=== PATIENT | male | born 1940 | race Caucasian/White ===

== ENCOUNTER 2020-01-11 01:01 | Inpatient (IN) | payer MEDICARE, SELFPAY ==
[2020-01-11] VITALS (17 sets, daily range): BP systolic 106–148; BP diastolic 60–90; PULSE 55–88; RESP 12–23; TEMP 36.3–37.2; O2SAT 95–98; BMI 28.8
--- NOTE | ~2020-01-11 | CT_ITS ---
EXAMINATION: CTA chest EXAM DATE: 01/11/2020 01:43 INDICATION: Chest pain, aortic aneurysm. TECHNIQUE: Spiral CT of the chest following intravenous injection of 75 mL Omnipaque 350. Axial, cor onal and sagittal images were reviewed. Coronal maximum intensity pixel images of chest reviewed. Ma ximum intensity projection 3-D reconstructions of the aorta were created by the technologist on dedic [employer] workstation. The dose-length product (DLP) for this examination was 572.71 mGy-cm. The exposur e was tailored according to patient size (auto mA exposure control), and iterative reconstruction ( IR) was used as additional dose reduction technique. There is no prior study for comparison. FINDINGS: No central pulmonary emboli. Aortic root dilated at 5.0 cm. Mildly aneurysmal ascending ao rta up to 4.4 cm. No thoracic aortic dissection. Mild to moderate scattered aortic arteriosclerotic d isease mostly beyond the aortic arch. There are no pleural or pericardial effusions. Tracheobronch ial tree is patent. There is no mediastinal, hilar or axillary lymphadenopathy. There is no pneum othorax. Heart normal in size. There is mild to moderate coronary arterial calcification, arteria l sclerosis. Renal lesions consistent with cysts. Thyroid nodules. There is moderate thoracic spond ylosis without osteoblastic or osteolytic lesions identified. IMPRESSION: 1. Aortic root dilation, ascending aortic aneurysm. 2. No acute cardiopulmonary findings. Reviewed, dictated and finalized at location A.
--- NOTE | 2020-01-11 00:59 | ECG_ITS ---
Measurements Intervals [place] Rate: 82 P: [place]: 0 QRS: -28 QRSD: 128 T: 133 QT: 418 QTc: 491 Interpretive Statements ATRIAL FIBRILLATION INTRAVENTRICULAR CONDUCTION DELAY LEFT VENTRICULAR HYPERTROPHY AND ST-T CHANGE ST ELEVATION IN ANTEROSEPTAL LEADS- CONSIDER ACUTE INJURY ST-T WAVE ABNORMALITY IN HIGH LATERAL LEADS- CONSIDER ISCHEMIA ABNORMAL ECG Electronically Signed On 01-11-2020 8:19:42 CDT by Jacobo Bhatia D.O.
--- NOTE | 2020-01-11 01:06 | ED.CHESTPAIN ---
HPI - Chest Pain General Chief Complaint: Chest Pain Stated Complaint: CP Source: patient and EMS Mode of arrival: EMS Limitations: no limitations History of Present Illness HPI narrative: This patient is a 79 yo male with h/o PA, CAD s/p stents 1 year ago who presents for evaluation of substernal chest pain. PAtient states he woke up to go to the restroom tonight, and as he was walking he develop dizziness and chest pain. He states his pain radiated to bilateral arms but worse on the right. He had associated numbness, sob, nausea and diaphoresis. He reports this is similar to when he had an PA last year. He took 4 nitroglycerin at home before EMS arrival. On EMS arrival , patient's pain decreased from 8 to 2. He was given 324 mg aspirin by EMS. Patient now reports his pain is almost compeltely gone. Timing of current episode: now resolved Onset: during exertion Pain location: substernal Pain radiation: right arm and left arm Quality: heaviness Relieving factors: nitroglycerin Associated symptoms: nausea, diaphoresis and dyspnea Treatment prior to arrival: aspirin (324 mg), nitroglycerin and oxygen Risk Factors Coronary artery disease risk factors: hypertension Thoracic aortic dissection risk factors: history of thoracic aortic aneurysm Related Data Allergies Allergy/AdvReac Type Severity Reaction Status Date / Time No Known Allergies Allergy Uncoded 07/10/19 06:41 Review of Systems Review of Systems: All systems reviewed & are unremarkable except as noted in HPI and below Constitutional: Constitutional: Denies chills and Denies fever(s) ENT: Denies nasal congestion and Denies sore throat Cardiovascular: Cardiovascular: Reports chest pain and Reports radiating jaw, neck or arm pain Respiratory: Respiratory: Denies chest congestion, Denies cough, Reports dyspnea and Denies wheezing Gastrointestinal: Gastrointestinal: Denies abdominal pain, Denies constipation, Denies diarrhea, Reports nausea and Denies vomiting [facility] Past Medical History Medical History (Updated 01/11/20 @ 07:46 by Leslie Card MD) Myocardial infarction Surgical History Surgical History (Updated 01/11/20 @ 01:13 by Leslie Card MD) History of heart artery stent Family History Family History (Updated 03/30/17 @ 12:30 by DOCTOR UNKNOWN) Mother Diabetes mellitus Family history of malignant neoplasm Father Family history of arthritis Social History Social History Smoking packs per day: 1 Smoking cigarettes per day: 20.0 Years smoked: 10 Smoking pack-years: 10.00 Smoking status: Former smoker Tobacco type: cigarettes Second hand tobacco smoke exposure: No Smoking end date: 09/24/1966 Alcohol intake: former Substance use: never Spiritual care concerns: No Agree to blood products: Yes Exam Const: General: no acute distress and alert Orientation/consciousness: patient oriented x3 Eyes: EOM: EOMs intact bilaterally Chest: Chest palpation & inspection: normal inspection of the chest Resp: Effort & Inspection: normal respiratory effort Auscultation: clear to auscultation bilaterally Cardio: Rate: regular rate Rhythm: regular rhythm Heart sounds: Murmur heart sound present systolic Peripheral pulses: Peripheral pulses 2+ throughout GI: Inspection: non-distended Auscultation: normal bowel sounds Skin: General skin exam: normal color Rashes: no rashes Neuro: General: patient oriented x3 and moves all extremities Extrem: General: normal to inspection and no pedal edema Psych: Mental Status: mental status grossly normal Course Reevaluation(s) Reevaluation #1: Patient presented with chest pain that resolved on arrival to ER after nitro. He now reports his pain has returned to 4/10. He states it is not as severe as before. Date: 01/11/20 Time: 02:50 Consultations Consultation #1: I have discussed case with Dr. Akash Marte, interventionalist about patient symptoms.
[2020-01-11] MEDS: ONDANSETRON INJ 4 MG/2 ML VIAL IV PUSH (01:08)
--- NOTE | 2020-01-11 01:09 | PC.NURSE ---
Patient's pain decreased, MD stated not to give nitro paste and morphine.
[2020-01-11 01:21] LABS: Basophils Percent Auto 0.4 % (0.2-1.2); Eosinophils Absolute Auto 0.1 K/mm3 (0-0.3); Eosinophils Percent Auto 1.6 % (0-4.4); Hematocrit 35.8 % (42.0-52.0); Hemoglobin 13.4 g/dL (14.0-18.0); Immature Granulocyte Absolute 0.01 K/mm3 (0.00-0.031); Immature Granulocyte Percent A 0.2 % (0-0.5); Lymphocytes Absolute Auto 1.86 K/mm3 (0.9-3.2); Lymphocytes Percent Auto 36.8 % (18.3-44.2); Mean Corpuscular HGB Conc 37.4 g/dl (32-36); Mean Corpuscular Hemoglobin 36.1 pg (26-34); Mean Corpuscular Volume 96.5 fl (80-100); Mean Platelet Volume 10.6 fl (7.4-10.4); Monocytes Absolute Auto 0.5 K/mm3 (0.1-0.6); Monocytes Percent Auto 9.1 % (2.6-8.5); Neutrophils Absolute Auto 2.6 K/mm3 (1.3-6.7); Neutrophils Percent Auto 51.9 % (45.5-73.1); Platelet Count Result 156 k/mm3 (150-375); Red Blood Count 3.71 M/mm3 (4.6-6.20); Red Cell Distribution Width 14.1 % (11.5-14.5); White Blood Count 5.1 K/mm3 (4.5-10.0)
[2020-01-11 01:30] LABS: INR 0.9; Prothrombin Time 12.3 Seconds (11.1-14.7)
[2020-01-11 01:31] LABS: Blood Urea Nitrogen 16 mg/dL (9-20); Calcium 9.2 mg/dL (8.4-10.2); Carbon Dioxide 26 mmol/L (22-30); Chloride 105 mmol/L (98-107); Estimated CRCL calculation 82 ml/min; Estimated Glomerular Filt Rate > 60; Glucose 135 mg/dL (75-110); Partial Thromboplastin Time 29.2 SECONDS (22.3-36.8); Potassium 3.9 mmol/L (3.4-5.0); Sodium 138 mmol/L (137-145)
[2020-01-11 01:43] LABS: Troponin I < 0.012 ng/mL (0.000-0.034)
--- NOTE | 2020-01-11 02:28 | ECG_ITS ---
Measurements Intervals [place] Rate: 84 P: [place]: 0 QRS: -30 QRSD: 138 T: 141 QT: 395 QTc: 469 Interpretive Statements ATRIAL FIBRILLATION INTRAVENTRICULAR CONDUCTION DELAY LEFT VENTRICULAR HYPERTROPHY AND ST-T CHANGE ST ELEVATION IN ANTEROSEPTAL LEADS- CONSIDER ACUTE INJURY ST-T WAVE ABNORMALITY IN LATERAL LEADS- CONSIDER ISCHEMIA ABNORMAL ECG Electronically Signed On 01-11-2020 8:22:20 CDT by Jacobo Bhatia D.O.
[2020-01-11] MEDS: NITROGLYCERIN OINTMENT 1 INCH DOSE TRANSDERM (02:31)
[2020-01-11] MEDS: MORPHINE SULFATE 2 MG/ML INJ IV PUSH (02:32)
[2020-01-11] MEDS: HEPARIN SODIUM 5,000 UNITS/ML VIAL 4000 UNITS IV PUSH (03:42)
[2020-01-11] MEDS: HEPARIN SOD/D5W 100 UNITS/ML 25,000 UNITS/250 ML BAG 10 UNITS IV CONT (03:43)
[2020-01-11] MEDS: NITROGLYCERIN/D5W 200 MCG/ML 50 MG/250 ML BTL IV CONT (03:43)
[2020-01-11 04:47] LABS: Troponin I 0.036 ng/mL (0.000-0.034)
--- NOTE | 2020-01-11 04:57 | PC.NURSE ---
Patient unsure of home medications.
--- NOTE | 2020-01-11 07:00 | ADMGEN ---
This patient, Marlon Clark, was admitted to Intensive Care Unit-10. Patient/family oriented to hospital policies and general routines including ID bracelet, bed and alarms, visiting hours, pain management, procedures, bathroom and other care routines, personal items, smoking policy, room service/diet, and visiting hours. Valuables list has been completed. Information on how to activate the Rapid Response Team has been discussed. Patient/Family are encouraged to report perceived risks to care and to ask questions if they do not understand what they are told or what they should do.
[2020-01-11 07:34] LABS: Prothrombin Time 12.8 Seconds (11.1-14.7)
[2020-01-11 07:44] LABS: Troponin I 0.049 ng/mL (0.000-0.034)
--- NOTE | 2020-01-11 09:21 | PM.IMHP ---
H&P: HPI History of Present Illness Chief complaint: NSTEMI Narrative: Marlon Clark is a 79 year old male with a known history of coronary artery disease having had a myocardial infarction a little over 1 year ago. He had a coronary angiogram with stents placed in he believes the LAD and left circumflex. This was performed in [facility]. He had no chest pain for over a year. However last night while seated at about 11:00 p.m. he began to experience 8/10 substernal chest pressure radiating down to both elbows with associated clamminess and shortness of breath. When he got up and tried to walk to the car to go to the emergency department with his he became more short of breath and had to sit down on the couch. They summoned 911 and he was brought the emergency department. He received 3 aspirin with EMS and his pain declined to 2/10. Upon arrival in ED increased to 4/5 out of 10 He received IV morphine and sublingual nitroglycerin in the pain declined again to 1 to 2/10 and is remained at that level all night. He has been anticoagulated with heparin. He did smoke as a young adult but has not smoked since about age 27. 0 He does have a history of hypertension and hyperlipidemia. He denied any family history of coronary artery disease. He does snore loudly and wears nasal tapes across his nose to help with that. However he has no symptoms of fatigue or daytime drowsiness. He denied any history of abnormal bleeding including nosebleeds gum bleeds hematuria melena and hematochezia. Review of Systems Review of Systems: All systems reviewed & are unremarkable except as noted in HPI and below PMFSH Past Medical History Medical History (Updated 01/11/20 @ 09:28 by Terry Nguyen MD) Hypertension Myocardial infarction 2019: [place], [place] Osteoarthritis of multiple joints Pelvic fracture due to trauma in his 20's Surgical History Surgical History (Updated 01/11/20 @ 09:28 by Terry Nguyen MD) History of appendectomy History of heart artery stent 2019: [place], [place] Family History Family History (Updated 01/11/20 @ 09:30 by Terry Nguyen MD) Mother Diabetes mellitus Family history of malignant neoplasm Father Family history of arthritis Family history of malignant neoplasm Sibling Chronic obstructive pulmonary disease Lung cancer Social History Social History (Updated 01/11/20 @ 09:29 by Terry Nguyen MD) Smoking packs per day: 1 Smoking cigarettes per day: 20.0 Years smoked: 10 Smoking pack-years: 10.00 Smoking status: Former smoker Tobacco type: cigarettes Second hand tobacco smoke exposure: No Smoking end date: 09/24/1966 Alcohol intake: former Substance use: never Living arrangements: with family Additional living arrangements comments: Resides with spouse Occupation/Education: retired Additional occupation/education comments: Retired from [employer] Spiritual care concerns: No Agree to blood products: Yes Meds Home Medications and Allergies Allergies Allergy/AdvReac Type Severity Reaction Status Date / Time No Known Allergies Allergy Uncoded 07/10/19 06:41 Vital Signs Vital Signs - 24 hr 01/11/20 00:55 01/11/20 04:18 01/11/20 04:57 Temperature 97.8 F Pulse Rate 85 88 86 Respiratory Rate 18 18 18 Blood Pressure 148/78 H 127/65 124/66 Pulse Oximetry 98 96 97 01/11/20 07:00 01/11/20 07:02 01/11/20 08:00 Temperature 98.2 F Pulse Rate 84 68 81 Respiratory Rate 19 16 23 H Blood Pressure 120/70 128/67 135/75 Pulse Oximetry 95 97 96 Exam Narrative: Exam Narrative: HEENT: EOMI, PERRL, sclerae nonicteric, pharyngeal mucosa pink and intact NECK: No JVD, adenopathy, or thyromegaly. No bruits. CHEST: Clear to auscultation. Normal effort. HEART: NL S1/S2, regular, no murmur ABDOMEN: BS+, soft, nontender, no mass, no bruits EXTREMITIES: No cyanosis, edema, or clubbing. Pulses 2+ carotids, radia
[2020-01-11 10:03] LABS: Partial Thromboplastin Time 76.8 SECONDS (22.3-36.8)
[2020-01-11] MEDS: ASPIRIN 81 MG CHEWABLE TABLET PO (10:19)
[2020-01-11] MEDS: ATORVASTATIN 40 MG TABLET PO (10:19)
[2020-01-11] MEDS: METOPROLOL TARTRATE 25 MG TABLET PO (10:19)
--- NOTE | 2020-01-11 11:15 | PM.CNCAR ---
Assessment and Plan Additional Plan NSTEMI, HX of ACS and PCI last year in OSH, HTN, early diastolic murmur liekly DESTINY, plan heparin infusion, ASA, Plavix, statin, add Imdur and B-justin, TTE in AM before cath to assess seveerity of AI, LHC in AM History of Present Illness History of Present Illness Consult date/time: 01/11/20 11:15 Reason For Visit: NSTEMI Narrative: Patient presented with acute chest pain, pressure like, sever 05/03, pressure, radiates to both arms, started at 11 PM before going to bed, imrpoved with NTG SL and infusion on arrival to ER, currently mild, no precipitating factors. Pain was associated with dizziness and near syncope. Pain was similar to episode he had when had had heart atatcks one year ago and he had 2 stents in [place] [facility]. Review of Systems Review of Systems: All systems reviewed & are unremarkable except as noted in HPI and below PMFSH Past Medical History Medical History (Updated 01/11/20 @ 11:26 by Tylor Calvin MD) Hypertension Myocardial infarction 2019: [place], [place] Osteoarthritis of multiple joints Pelvic fracture due to trauma in his 20's Surgical History Surgical History (Updated 01/11/20 @ 09:28 by Terry Nguyen MD) History of appendectomy History of heart artery stent 2019: [place], [place] Family History Family History (Updated 01/11/20 @ 09:30 by Terry Nguyen MD) Mother Diabetes mellitus Family history of malignant neoplasm Father Family history of arthritis Family history of malignant neoplasm Sibling Chronic obstructive pulmonary disease Lung cancer Social History Social History (Updated 01/11/20 @ 09:29 by Terry Nguyen MD) Smoking packs per day: 1 Smoking cigarettes per day: 20.0 Years smoked: 10 Smoking pack-years: 10.00 Smoking status: Former smoker Tobacco type: cigarettes Second hand tobacco smoke exposure: No Smoking end date: 09/24/1966 Alcohol intake: former Substance use: never Living arrangements: with family Additional living arrangements comments: Resides with spouse Occupation/Education: retired Additional occupation/education comments: Retired from [employer] Spiritual care concerns: No Agree to blood products: Yes Meds Home Medications and Allergies Home Medications Medication Instructions Recorded Confirmed Type atorvastatin 40 mg PO DAILY 01/11/20 01/11/20 History carvedilol 3.125 mg PO DAILY 01/11/20 01/11/20 History clopidogrel 75 mg PO DAILY 01/11/20 01/11/20 History losartan 50 mg PO DAILY 01/11/20 01/11/20 History Allergies Allergy/AdvReac Type Severity Reaction Status Date / Time No Known Allergies Allergy Uncoded 07/10/19 06:41 Vital Signs Vital Signs - 24 hr 01/11/20 00:55 01/11/20 04:18 01/11/20 04:57 Temperature 36.6 C Pulse Rate 85 88 86 Respiratory Rate 18 18 18 Blood Pressure 148/78 H 127/65 124/66 Pulse Oximetry 98 96 97 01/11/20 07:00 01/11/20 07:02 01/11/20 08:00 Temperature 36.8 C Pulse Rate 84 68 81 Respiratory Rate 19 16 23 H Blood Pressure 120/70 128/67 135/75 Pulse Oximetry 95 97 96 01/11/20 10:00 01/11/20 10:19 01/11/20 11:10 Temperature Pulse Rate 78 82 77 Respiratory Rate 12 Blood Pressure 148/81 H Pulse Oximetry 96 Exam Const: General: comfortable and no acute distress Other: Able to lie flat HENMT: General nose exam: Normal nares present and no epistaxis Mouth: Yes moist mucous membranes Eyes: Sclera: sclerae normal Pupils: Equal, round and reactive pupils present Neck: Neck: supple and no JVD Carotids: no bruits Resp: Auscultation: clear to auscultation bilaterally and lung sounds not diminished Other: No chest wall tenderness Cardio: Rate: regular rate Rhythm: regular rhythm Heart sounds: no gallops, Murmur heart sound present and no rubs Other: early diastolic murmur GI: GI Palp: Yes Soft to palpation and No Tenderness to palpation present (
--- NOTE | 2020-01-11 11:20 | WPDCNINT ---
Assessment and Plan Assessment and plan (1) Hypertension: Code(s): I10 - Essential (primary) hypertension Status: Acute Assessment and Plan: Continue metoprolol. Follow blood pressure closely. He has been weaned off nitroglycerin drip already. (2) Non-ST elevation AL (NSTEMI): Code(s): I21.4 - Non-ST elevation (NSTEMI) myocardial infarction Status: Acute Assessment and Plan: Continue aspirin and statin. Cardiology evaluation is pending. He will likely need cardiac catheterization. No ongoing chest pain. Continue to monitor on telemetry. Chest pain protocol. Nitroglycerin patch/ ointment / sublingual S p.r.n. for pain control. May use morphine for pain control as well. Continue heparin drip. Follow APTT and any bleeding. CT of the chest has been performed with pending read from Cardiology. I reviewed the images myself and do not see any pulmonary embolism. (3) CAD (coronary artery disease): Code(s): I25.10 - Atherosclerotic heart disease of [place] coronary artery without angina pectoris Status: Acute Assessment and Plan: He has a known history of CAD with stent placement in LAD and left circumflex artery about a year ago. (4) Hyperlipidemia: Code(s): E78.5 - Hyperlipidemia, unspecified Status: Acute Assessment and Plan: Continue statin. Additional Plan Will downgrade him to telemetry floor Versus IMU later today. DVT prophylaxis with systemic anticoagulation GI prophylaxis not indicated Consulting Sales Executive Consult Note Consult date: 01/11/20 Time Seen: 09:48 HPI: Marlon Clark is a 79 year old male with past medical history of hypertension, hyperlipidemia, CAD status post stent placement in LAD and left circumflex artery about a year ago who came to the ED with complaints of substernal chest pain. S it started last night at around 11:00 p.m.. Pain was 8 x 10 in intensity and radiating to both arms with sweating and shortness of breath. He denied have any lightheadedness or dizziness. Did not have any nausea and vomiting. That call EMS and he was brought in here. He was still complaining of chest pain in the emergency department after sublingual nitro and IV morphine. He was started on nitro drip. He was started on anticoagulation with heparin as well. He had workup done in the emergency department with minimal troponin elevation. EKG is suggestive of some ischemic changes. Review of Systems Review of Systems: Narrative: A comprehensive review of systems has been reviewed with the patient and most of the symptoms are negative except the one's mentioned above in HPI. [facility] Past Medical History Medical History (Updated 01/11/20 @ 11:26 by Tylor Calvin MD) Hypertension Myocardial infarction 2019: [place], [place] Osteoarthritis of multiple joints Pelvic fracture due to trauma in his 20's Surgical History Surgical History (Updated 01/11/20 @ 09:28 by Terry Nguyen MD) History of appendectomy History of heart artery stent 2019: [place], [place] Family History Family History (Updated 01/11/20 @ 09:30 by Terry Nguyen MD) Mother Diabetes mellitus Family history of malignant neoplasm Father Family history of arthritis Family history of malignant neoplasm Sibling Chronic obstructive pulmonary disease Lung cancer Social History Social History (Updated 01/11/20 @ 09:29 by Terry Nguyen MD) Smoking packs per day: 1 Smoking cigarettes per day: 20.0 Years smoked: 10 Smoking pack-years: 10.00 Smoking status: Former smoker Tobacco type: cigarettes Second hand tobacco smoke exposure: No Smoking end date: 09/24/1966 Alcohol intake: former Substance use: never Living arrangements: with family Additional living arrangements comments: Resides with spouse Occupation/Education: retired Additional occupation/education comments: Retired from [employer]
--- NOTE | 2020-01-11 14:13 | PC.NURSE ---
This patient, Marlon Clark, was transferred to [ 202 ] on 01/11/20 at 1413. Personal belongings sent with patient. Belongings list checked and signed with receiving [yes ]. Report given to [ HEVER Mendez]. Appropriate documentation sent with patient.
[2020-01-11 16:23] LABS: Partial Thromboplastin Time 69.7 SECONDS (22.3-36.8)
[2020-01-11] MEDS: HEPARIN SODIUM 5,000 UNITS/ML VIAL 3500 UNITS IV PUSH (16:46)
[2020-01-11] MEDS: METOPROLOL TARTRATE 25 MG TABLET 50 MG PO (21:41)
[2020-01-12] VITALS (19 sets, daily range): BP systolic 108–137; BP diastolic 49–70; PULSE 51–70; RESP 16–20; TEMP 36.3–36.9; O2SAT 93–99
--- NOTE | 2020-01-12 | ECHO_ITS ---
Patient Info Name: Marlon Clark Age: 79 years : 1940 Gender: Male Ht: 72 in Wt: 212 lbs BSA: 2.23 m2 HR: 53 bpm BP: 114 / 59 mmHg Technical Quality: Good Exam Date: 01/12/2020 11:10 AM Exam Location: [facility] Patient Status: Inpatient Admit Date: 01/11/2020 Staff Ordering Physician: Jesus Fernandez MD Underwriting Clerk: Tony Covington RDCS, RT Attending Provider: Catherine Mohan DO Exam Type: CA echo dop color flow w con Study Info Indications I35.1 - Nonrheumatic aortic (valve) insufficiency I21.4 - Non-ST elevation (NSTEMI) myocardial infarction Complete two-dimensional, color flow and Doppler transthoracic echocardiogram is performed with contrast to opacify the left ventrical and to improve the deliniation of the left ventrical endocarial boarders. Summary 1. Left ventricular chamber dimension is normal. 2. Definity contrast administered improved wall motion interpretation. 3. Left ventricular systolic function is normal, estimated at 60-65%. 4. There is severe concentric increased left ventricular wall thickness. 5. The left ventricular diastolic function is abnormal. 6. E/e' 11 is mildly elevated. 7. Left atrial chamber dimension is moderately enlarged. 8. There is mild aortic valve sclerosis. 9. There is mild to moderate aortic valve regurgitation. 10. There is mild mitral valve regurgitation. 11. There is mild tricuspid valve regurgitation. 12. No pulmonary hypertension, estimated pulmonary arterial systolic pressure is 36 mmHg. 13. There is mild pulmonic regurgitation. 14. The aortic root size at the sinus of Valsalva is moderately dilated at 4.7 cm. 15. Dilated inferior vena cava with >50% collapse upon inspiration consistent with elevated right atrial pressure, 10 mmHg. Left Ventricle Definity contrast administered improved wall motion interpretation. E/e' 11 is mildly elevated. Left ventricular chamber dimension is normal. Left ventricular systolic function is normal, estimated at 60-65%. There is severe concentric increased left ventricular wall thickness. The left ventricular diastolic function is abnormal. Right Ventricle Right ventricular chamber dimension is normal. Right ventricular systolic function is normal. Left Atria Left atrial chamber dimension is moderately enlarged. Right Atria Right atrial chamber dimension is normal. Aortic Valve The aortic valve is trileaflet. There is mild aortic valve sclerosis. There is no aortic valve stenosis. There is mild to moderate aortic valve regurgitation. Pulmonic Valve There is mild pulmonic regurgitation. Mitral Valve There is no mitral valve stenosis. There is mild mitral valve regurgitation. Tricuspid Valve There is mild tricuspid valve regurgitation. No pulmonary hypertension, estimated pulmonary arterial systolic pressure is 36 mmHg. Pericardium/Pleural There is no pericardial effusion. Inferior Vena Cava Dilated inferior vena cava with >50% collapse upon inspiration consistent with elevated right atrial pressure, 10 mmHg. Aorta The aortic root size at the sinus of Valsalva is moderately dilated at 4.7 cm. Left Ventricular Outflow Tract Name Value Normal LVOT 2D LVOT Diameter
[2020-01-12] MEDS: HEPARIN SOD/D5W 100 UNITS/ML 25,000 UNITS/250 ML BAG 10 UNITS IV CONT (02:41)
[2020-01-12 07:15] LABS: Basophils Percent Auto 0.7 % (0.2-1.2); Eosinophils Absolute Auto 0.1 K/mm3 (0-0.3); Eosinophils Percent Auto 1.7 % (0-4.4); Hematocrit 36.3 % (42.0-52.0); Immature Granulocyte Absolute 0.01 K/mm3 (0.00-0.031); Immature Granulocyte Percent A 0.2 % (0-0.5); Lymphocytes Absolute Auto 1.51 K/mm3 (0.9-3.2); Lymphocytes Percent Auto 36.5 % (18.3-44.2); Mean Corpuscular HGB Conc 33.1 g/dl (32-36); Mean Corpuscular Hemoglobin 31.3 pg (26-34); Mean Corpuscular Volume 94.8 fl (80-100); Mean Platelet Volume 11.1 fl (7.4-10.4); Monocytes Absolute Auto 0.4 K/mm3 (0.1-0.6); Monocytes Percent Auto 10.4 % (2.6-8.5); Neutrophils Absolute Auto 2.1 K/mm3 (1.3-6.7); Neutrophils Percent Auto 50.5 % (45.5-73.1); Platelet Count Result 147 k/mm3 (150-375); Red Blood Count 3.83 M/mm3 (4.6-6.20); Red Cell Distribution Width 13.3 % (11.5-14.5); White Blood Count 4.1 K/mm3 (4.5-10.0)
[2020-01-12 08:01] LABS: Partial Thromboplastin Time 90.4 SECONDS (22.3-36.8)
--- NOTE | 2020-01-12 09:00 | ECG_ITS ---
Measurements Intervals [place] Rate: 55 P: 60 MT: 189 QRS: -25 QRSD: 132 T: 141 QT: 458 QTc: 439 Interpretive Statements SINUS BRADYCARDIA WITH SINUS ARRHYTHMIA INTRAVENTRICULAR CONDUCTION DELAY LEFT VENTRICULAR HYPERTROPHY AND ST-T CHANGE ST ELEVATION IN ANTEROSEPTAL LEADS- CONSIDER ACUTE INJURY OR DUE TO LVH ST-T WAVE ABNORMALITY IN LATERAL LEADS- CONSIDER ISCHEMIA ABNORMAL ECG Electronically Signed On 01-12-2020 9:50:21 CDT by Jacobo Bhatia D.O.
[2020-01-12] MEDS: METOPROLOL TARTRATE 25 MG TABLET 50 MG PO ×2 (09:51→21:21)
[2020-01-12] MEDS: ATORVASTATIN 40 MG TABLET 80 MG PO (09:51)
[2020-01-12] MEDS: ASPIRIN 81 MG ENTERIC TABLET PO (09:51)
[2020-01-12] MEDS: ISOSORBIDE MONONITRATE 30 MG TAB.ER.24H PO (09:52)
--- NOTE | 2020-01-12 09:53 | PM.PNCARD ---
Progress Note: A&P Assessment and Plan (1) Hyperlipidemia: Code(s): E78.5 - Hyperlipidemia, unspecified Status: Acute (2) CAD (coronary artery disease): Code(s): I25.10 - Atherosclerotic heart disease of [place] coronary artery without angina pectoris Status: Acute (3) Hypertension: Code(s): I10 - Essential (primary) hypertension Status: Acute Assessment and Plan: Stable. (4) Non-ST elevation [place] (NSTEMI): Code(s): I21.4 - Non-ST elevation (NSTEMI) myocardial infarction Status: Acute Assessment and Plan: Chest pain free. Very slight troponin elevation. It was discussed with patient regarding cardiac cath and medical therapy. Check echo and if new wall motion abnormalities, then patient is agreeable for cardiac cath in AM. Otherwise he is agreeable for medical therapy which includes heparin drip, aspirin, resume Clopidogrel, statin, Coreg and Losartan. Check troponin in AM. Obtain last cath in Sep 2018 from [facility] in [place]. (5) Ascending aortic aneurysm: Code(s): I71.2 - Thoracic aortic aneurysm, without rupture Status: Acute Subjective Date/time seen: 01/12/20 09:53 79 yr old man who I saw last on 11/01/17 in the office who has a history of CAD with 2 stents placement at [place] in Sep 2018, ascending aortic aneurysm, dyslipidemia, hypertension presents with chest pain. He is currently chest pain free since taking aspirin and NTG. He is on hepain drip. EKG showed some EKG changes and slight troponin elevations up to .049. He is feeling fine now without chest pain or sob or arm pains. Reports he gets intermittent dizziness when he turns his head while lying in bed or upon sitting up. Exam Const: General: comfortable and no acute distress Neck: Neck: no JVD Carotids: no bruits Resp: Auscultation: clear to auscultation bilaterally, no crackles, no rales, no rhonchi and no wheezes Cardio: Rate: regular rate Rhythm: regular rhythm Heart sounds: no murmurs GI: Inspection: non-distended Neuro: Speech: normal speech Extrem: Right lower extremity: no edema Left lower extremity: no edema Objective Data Vital Signs Vital Signs: Vital Signs - 24 hr 01/11/20 10:00 01/11/20 10:19 01/11/20 11:10 Temperature Pulse Rate 78 82 77 Respiratory Rate 12 Blood Pressure 148/81 H Pulse Oximetry 96 01/11/20 12:00 01/11/20 14:07 01/11/20 16:00 Temperature 99.0 F Pulse Rate 79 74 75 Respiratory Rate 22 H Blood Pressure 146/90 H Pulse Oximetry 97 01/11/20 17:05 01/11/20 18:00 01/11/20 20:00 Temperature 97.7 F 97.4 F L Pulse Rate 74 86 77 Respiratory Rate 22 H 16 Blood Pressure 106/60 129/61 Pulse Oximetry 95 95 01/11/20 22:00 01/11/20 23:50 01/12/20 00:00 Temperature 97.4 F L Pulse Rate 55 L 59 L 70 Respiratory Rate 16 Blood Pressure 129/56 L Pulse Oximetry 95 01/12/20 02:00 01/12/20 03:45 01/12/20 04:00 Temperature 97.8 F Pulse Rate 54 L 54 L 59 L Respiratory Rate 16 16 Blood Pressure 114/59 L Pulse Oximetry 95 98 01/12/20 06:00 01/12/20 08:00 01/12/20 09:51 Temperature 97.7 F Pulse Rate 59 L 55 L 52 L Respiratory Rate 16 Blood Pressure 119/57 L Pulse Oximetry 97 Intake/Output Intake/Output: Intake & Output 01/09/20 01/10/20 01/11/20 01/12/20 23:59 23:59 23:59 23:59 Intake Total 622 450 Balance 622 450 Meds/Results Medications: Active Medications Generic Name Dose Route Start Last Admin Trade Name Sreedhar PRN Reason Stop Dose Admin Aspirin 81 mg 01/12/20 09:00 01/12/20 09:51 Aspirin Ec PO 81 mg QAM [facility] Administration Atorvastatin Calcium 80 mg 01/11/20 11:32 01/12/20 09:51 Lipitor PO 80 mg DAILY [facility] Administration Clopidogrel Bisulfate 75 mg 01/13/20 09:00 Plavix PO QAM [facility] Clopidogrel Bisulfate 75 mg 01/12/20 09:55 Plavix PO QAM [facility] Heparin Sodium (Porcine) 4,000 units
[2020-01-12] MEDS: CLOPIDOGREL BISULFATE 75 MG TABLET PO (10:00)
--- NOTE | 2020-01-12 10:24 | PM.IMPN ---
Progress Note: A&P Assessment and Plan (1) Non-ST elevation [place] (NSTEMI): Code(s): I21.4 - Non-ST elevation (NSTEMI) myocardial infarction Status: Acute Assessment and Plan: Heparin ASA Metoprolol Atorvastatin Isosorbide Morphine prn Coronary angiogram today (2) Hypertension: Code(s): I10 - Essential (primary) hypertension Status: Acute Assessment and Plan: Metoprolol Monitor Subjective Date/time seen: 01/12/20 10:24 Interval history: Admitted 01/10 with chest pain radiating to arms, sob. Elevated troponin. 01/11 Pain free. No sob. Awaiting cath. Review of Systems Review of Systems: All systems reviewed & are unremarkable except as noted in HPI and below Exam Narrative: Exam Narrative: HEENT: EOMI, PERRL, sclerae nonicteric, pharyngeal mucosa pink and intact NECK: No JVD CHEST: Clear to auscultation. Normal effort. HEART: NL S1/S2, regular, no murmur ABDOMEN: BS+, soft, nontender, no mass, no bruits EXTREMITIES: No cyanosis, edema, or clubbing. Pulses 2+ carotids, radials, DP. NEUROLOGIC: CN intact and symmetric to inspection. MUSCULOSKELETAL: Tone and strength symmetric. PSYCH: Alert. Oriented to person, place, and time. Objective Data Vital Signs Vital Signs: Vital Signs - 24 hr 01/11/20 11:10 01/11/20 12:00 01/11/20 14:07 Temperature 99.0 F Pulse Rate 77 79 74 Respiratory Rate 22 H Blood Pressure 146/90 H Pulse Oximetry 97 01/11/20 16:00 01/11/20 17:05 01/11/20 18:00 Temperature 97.7 F Pulse Rate 75 74 86 Respiratory Rate 22 H Blood Pressure 106/60 Pulse Oximetry 95 01/11/20 20:00 01/11/20 22:00 01/11/20 23:50 Temperature 97.4 F L Pulse Rate 77 55 L 59 L Respiratory Rate 16 Blood Pressure 129/61 Pulse Oximetry 95 01/12/20 00:00 01/12/20 02:00 01/12/20 03:45 Temperature 97.4 F L Pulse Rate 70 54 L 54 L Respiratory Rate 16 16 Blood Pressure 129/56 L Pulse Oximetry 95 95 01/12/20 04:00 01/12/20 06:00 01/12/20 08:00 Temperature 97.8 F 97.7 F Pulse Rate 59 L 59 L 55 L Respiratory Rate 16 16 Blood Pressure 114/59 L 119/57 L Pulse Oximetry 98 97 01/12/20 09:51 Temperature Pulse Rate 52 L Respiratory Rate Blood Pressure Pulse Oximetry Intake/Output Intake/Output: Intake & Output 01/09/20 01/10/20 01/11/20 01/12/20 23:59 23:59 23:59 23:59 Intake Total 622 450 Balance 622 450 Meds/Results Medications: Active Medications Generic Name Dose Route Start Last Admin Trade Name Freq PRN Reason Stop Dose Admin Aspirin 81 mg 01/12/20 09:00 01/12/20 09:51 Aspirin Ec PO 81 mg QAM [facility] Administration Atorvastatin Calcium 80 mg 01/11/20 11:32 01/12/20 09:51 Lipitor PO 80 mg DAILY [facility] Administration Clopidogrel Bisulfate 75 mg 01/12/20 09:55 01/12/20 10:00 Plavix PO 75 mg QAM [facility] Administration Heparin Sodium (Porcine) 4,000 units 01/11/20 03:09 Heparin Sodium IV PUSH PRN PRN aPTT less than 55 seconds Heparin Sodium (Porcine) 3,500 units 01/11/20 03:09 01/11/20 16:46 Heparin Sodium IV PUSH 3,500 units PRN PRN Administration aPTT 55 - 70 seconds Heparin Sodium/Dextrose 25,000 units in 250 mls @ 10 mls/hr 01/11/20 03:10 01/12/20 02:41 Heparin Sodium/D5w 100 Units/Ml IV CONT 1,000 units/hr .Q24H [facility] 10 mls/hr Administration Protocol 1,000 UNITS/HR Isosorbide Mononitrate 30 mg 01/12/20 09:00 01/12/20 09:52 Imdur PO 30 mg QAM [facility] Administration Metoprolol Tartrate 50 mg 01/11/20 11:32 01/12/20 09:51 Lopressor PO 50 mg Q12HR [facility] Administration Morphine Sulfate 4 mg 01/11/20 05:39 Morphine Sulfate Inj IV PUSH Q2H PRN Pain Rated 7-10 Radiology Results: ITS Impressions Chest CTA 01/11/20 11:47 IMPRESSION: 1. Aortic root dilation, ascending aortic aneurysm. 2. No acute cardiopulmonary findings. Labs Labs: Laborator
[2020-01-12] MEDS: PERFLUTREN LIPID MICROSPHERES 1.5 ML VIAL DILUTED TO 10 ML TOTAL VOLUME IV PUSH (12:08)
[2020-01-12 13:08] LABS: Partial Thromboplastin Time 74.6 SECONDS (22.3-36.8)
[2020-01-13] VITALS (21 sets, daily range): BP systolic 111–166; BP diastolic 47–71; PULSE 46–77; RESP 8–171; TEMP 36.1–36.8; O2SAT 93–98
[2020-01-13] MEDS: HEPARIN SOD/D5W 100 UNITS/ML 25,000 UNITS/250 ML BAG 10 UNITS IV CONT (04:09)
[2020-01-13 07:49] LABS: Partial Thromboplastin Time 73.6 SECONDS (22.3-36.8)
[2020-01-13 07:55] LABS: Troponin I 0.028 ng/mL (0.000-0.034)
--- NOTE | 2020-01-13 07:57 | PM.PNCARD ---
Progress Note: A&P Assessment and Plan (1) Ascending aortic aneurysm: Code(s): I71.2 - Thoracic aortic aneurysm, without rupture Status: Acute Assessment and Plan: Aortic root aneurysm 5.0 cm. (2) Hyperlipidemia: Code(s): E78.5 - Hyperlipidemia, unspecified Status: Acute (3) CAD (coronary artery disease): Code(s): I25.10 - Atherosclerotic heart disease of [place] coronary artery without angina pectoris Status: Acute Assessment and Plan: Obtain cath report from [place] done Sep 2018 when he received 2 stents. (4) Hypertension: Code(s): I10 - Essential (primary) hypertension Status: Acute Assessment and Plan: Increase Losartan 50 mg daily. Continue to monitor. If BP trends up, will change Metoprolol back to Coreg. (5) Non-ST elevation [place] (NSTEMI): Code(s): I21.4 - Non-ST elevation (NSTEMI) myocardial infarction Status: Acute Assessment and Plan: Recurrence of chest pains last evening. Notified HCG for cardiac cath today. Risk/benefits/alternative treatment of cardiac cath discussed with patient and he is agreeable for procedure. Keep NPO for it. On Heparin drip, aspirin, Clopidogrel, Metoprolol, Losartan, Atorvastatin. Subjective Date/time seen: 01/13/20 07:57 Patient reports recurrent chest pain last evening 2/10 chest pressure lasted 30 minutes while resting in bed. Exam Const: General: comfortable and no acute distress Neck: Neck: no JVD Carotids: no bruits Resp: Auscultation: clear to auscultation bilaterally, no crackles, no rales, no rhonchi and no wheezes Cardio: Rate: regular rate Rhythm: regular rhythm Heart sounds: no murmurs GI: Inspection: non-distended Neuro: Speech: normal speech Extrem: Right lower extremity: no edema Left lower extremity: no edema Objective Data Vital Signs Vital Signs: Vital Signs - 24 hr 01/12/20 08:00 01/12/20 09:51 01/12/20 10:00 Temperature 97.7 F Pulse Rate 54 L 52 L 52 L Respiratory Rate 16 Blood Pressure 119/57 L Pulse Oximetry 95 01/12/20 11:58 01/12/20 12:00 01/12/20 14:00 Temperature 98.2 F Pulse Rate 55 L 51 L 64 Respiratory Rate 20 16 Blood Pressure 108/64 Pulse Oximetry 93 95 01/12/20 16:00 01/12/20 18:00 01/12/20 19:42 Temperature 98.4 F 98.1 F Pulse Rate 56 L 61 56 L Respiratory Rate 16 20 Blood Pressure 122/49 L 124/58 L Pulse Oximetry 95 97 01/12/20 20:00 01/12/20 21:47 01/12/20 23:42 Temperature Pulse Rate 58 L 65 55 L Respiratory Rate Blood Pressure Pulse Oximetry 01/12/20 23:47 01/13/20 02:00 01/13/20 04:00 Temperature 98.1 F 97.2 F L Pulse Rate 56 L 46 L 58 L Respiratory Rate 20 20 Blood Pressure 137/49 L 164/47 H Pulse Oximetry 97 96 01/13/20 06:00 Temperature Pulse Rate 52 L Respiratory Rate Blood Pressure Pulse Oximetry Intake/Output Intake/Output: Intake & Output 01/10/20 01/11/20 01/12/20 01/13/20 23:59 23:59 23:59 23:59 Intake Total 622 1470 610 Balance 622 1470 610 Meds/Results Medications: Active Medications Generic Name Dose Route Start Last Admin Trade Name Freq PRN Reason Stop Dose Admin Aspirin 81 mg 01/12/20 09:00 01/12/20 09:51 Aspirin Ec PO 81 mg QAM [facility] Administration Atorvastatin Calcium 80 mg 01/11/20 11:32 01/12/20 09:51 Lipitor PO 80 mg DAILY [facility] Administration Clopidogrel Bisulfate 75 mg 01/12/20 09:55 01/12/20 10:00 Plavix PO 75 mg QAM [facility] Administration Heparin Sodium (Porcine) 4,000 units 01/11/20 03:09 Heparin Sodium IV PUSH PRN PRN aPTT less than 55 seconds Heparin Sodium (Porcine) 3,500 units 01/11/20 03:09 01/11/20 16:46 Heparin Sodium IV PUSH 3,500 units PRN PRN Administration aPTT 55 - 70 seconds Heparin Sodium/Dextrose 25,000 units in 250 mls @ 10 mls/hr 01/11/20 03:10 01/13/20 06:26 Heparin Sodium/D5w 100 Units/Ml IV CONT 1,000 units/hr
[2020-01-13 07:58] LABS: Iron 93 ug/dL (49-181)
[2020-01-13 08:05] LABS: Immature Reticulocyte Fraction 12.5 % (3.0-15.9); Reticulocyte Hemoglobin Conten 35.9 pg (28.2-35.7); Reticulocytes Absolute 0.03 B/L (32.2-175.7)
[2020-01-13 08:07] LABS: Percent Iron Saturation 35 % (20-50)
[2020-01-13] MEDS: ATORVASTATIN 40 MG TABLET 80 MG PO (08:10)
[2020-01-13] MEDS: ISOSORBIDE MONONITRATE 30 MG TAB.ER.24H PO (08:10)
[2020-01-13] MEDS: CLOPIDOGREL BISULFATE 75 MG TABLET PO (08:10)
[2020-01-13] MEDS: ASPIRIN 81 MG ENTERIC TABLET PO (08:10)
[2020-01-13] MEDS: LOSARTAN POTASSIUM 50 MG TABLET PO (08:11)
[2020-01-13 08:42] LABS: Blood Urea Nitrogen 14 mg/dL (9-20); Calcium 8.8 mg/dL (8.4-10.2); Carbon Dioxide 25 mmol/L (22-30); Chloride 106 mmol/L (98-107); Estimated CRCL calculation 95 ml/min; Estimated Glomerular Filt Rate > 60; Glucose 101 mg/dL (75-110); Sodium 138 mmol/L (137-145)
[2020-01-13 08:51] LABS: Folic Acid > 20.0 ng/mL (2.76->20)
--- NOTE | 2020-01-13 09:31 | WPDMODSED ---
Moderate Sedation Note-Pt Data Patient Data Allergies Allergy/AdvReac Type Severity Reaction Status Date / Time No Known Allergies Allergy Uncoded 07/10/19 06:41 Home Medications Medication Instructions Recorded Confirmed Type aspirin 81 mg PO DAILY 01/11/20 01/11/20 History atorvastatin 40 mg PO DAILY 01/11/20 01/11/20 History carvedilol 3.125 mg PO DAILY 01/11/20 01/11/20 History clopidogrel 75 mg PO DAILY 01/11/20 01/11/20 History losartan 50 mg PO DAILY 01/11/20 01/11/20 History Current Medications: Active Medications Aspirin (Aspirin Ec) 81 mg PO [facility] Last Admin: 01/13/20 08:10 Dose: 81 mg Documented by: Atorvastatin Calcium (Lipitor) 80 mg PO DAILY [facility] Last Admin: 01/13/20 08:10 Dose: 80 mg Documented by: Clopidogrel Bisulfate (Plavix) 75 mg PO [facility] Last Admin: 01/13/20 08:10 Dose: 75 mg Documented by: Heparin Sodium (Porcine) (Heparin Sodium) 4,000 units IV PUSH PRN PRN PRN Reason: aPTT less than 55 seconds Heparin Sodium (Porcine) (Heparin Sodium) 3,500 units IV PUSH PRN PRN PRN Reason: aPTT 55 - 70 seconds Last Admin: 01/11/20 16:46 Dose: 3,500 units Documented by: Heparin Sodium/Dextrose (Heparin Sodium/D5w 100 Units/Ml) 25,000 units in 250 mls @ 10 mls/hr IV CONT .Q24H [facility]; Protocol Last Titration: 01/13/20 08:00 Dose: 1,000 units/hr, 10 mls/hr Documented by: Isosorbide Mononitrate (Imdur) 30 mg PO [facility] Last Admin: 01/13/20 08:10 Dose: 30 mg Documented by: Losartan [facility]) [facility] Last Admin: 01/13/20 08:11 Dose: 50 mg Documented by: Metoprolol Tartrate (Lopressor) 50 mg PO Q12HR [facility] Last Admin: 01/12/20 21:21 Dose: 50 mg Documented by: Morphine Sulfate (Morphine Sulfate Inj) 4 mg IV PUSH Q2H PRN PRN Reason: Pain Rated 7-10 Sedation/Anesthesia: No previous sedation/anesthesia problems (including family history). [facility] Past Medical History Medical History (Updated 01/12/20 @ 09:56 by Jacobo Bhatia DO) Hypertension Myocardial infarction 2019: [place], [place] Osteoarthritis of multiple joints Pelvic fracture due to trauma in his 20's Surgical History Surgical History (Updated 01/11/20 @ 09:28 by Terry Nguyen MD) History of appendectomy History of heart artery stent 2019: [place], [place] Family History Family History (Updated 01/11/20 @ 09:30 by Terry Nguyen MD) Mother Diabetes mellitus Family history of malignant neoplasm Father Family history of arthritis Family history of malignant neoplasm Sibling Chronic obstructive pulmonary disease Lung cancer Social History Social History (Updated 01/11/20 @ 09:29 by Terry Nguyen MD) Smoking packs per day: 1 Smoking cigarettes per day: 20.0 Years smoked: 10 Smoking pack-years: 10.00 Smoking status: Former smoker Tobacco type: cigarettes Second hand tobacco smoke exposure: No Smoking end date: 09/24/1966 Alcohol intake: former Substance use: never Living arrangements: with family Additional living arrangements comments: Resides with spouse Occupation/Education: retired Additional occupation/education comments: Retired from [employer] Spiritual care concerns: No Agree to blood products: Yes Mod Sed Physical Exam Physical Exam Pre Procedural Exam: Normal: Airway Hours since solid foods: 10 Hours since liquid intake: 10 Internal Medicine - PN: Obj Da Vital Signs Vital Signs: Vital Signs - 24 hr 01/12/20 09:51 01/12/20 10:00 01/12/20 11:58 Temperature 36.8 C Pulse Rate 52 L 52 L 55 L Respiratory Rate 20 Blood Pressure 108/64 Pulse Oximetry 93 01/12/20 12:00 01/12/20 14:00 01/12/20 16:00 Temperature 36.9 C Pulse Rate 51 L 64 56 L Respiratory Rate 16 16 Blood Pressure 122/49 L Pulse Oximetry 95 95 01/12/20 18:00 01/12/20 19:42 01/12/20 20:00 Temperature 36.7 C Pulse Rate 61 56 L 58 L Respiratory Rate 20 Blood Pressure 124/58 L Pulse Oximetr
--- NOTE | 2020-01-13 09:32 | WPDHPUPDATE1 ---
History and Physical Update Update Date/Time: 01/13/20 09:32 History and Physical has been reviewed, including an updated exam of the patient. There are NO changes in the patient's condition. Risks, benefits, and alternatives have been discussed and questions answered. Patient agrees to proceed with procedure.
[2020-01-13 10:42] LABS: IFOB Positive Control Positive; Immunochemical Fecal Occult Bl Negative (N)
--- NOTE | 2020-01-13 11:18 | WPDCARDPROC ---
Cardiac Cath Procedure Note Date of procedure:: 01/13/20 Performing physician:: Jonathan Salter MD Indication:: Chest pain, minimal troponin elevation Procedure Procedure note:: CARDIAC CATHETERIZATION AND PERCUTANEOUS CORONARY INTERVENTION REPORT DATE OF PROCEDURE: 01/13/2020 INDICATION FOR PROCEDURE: chest pain, minimal troponin elevation; known CAD, history of PCI /stenting of proximal-mid LAD, OM branch BRIEF CLINICAL HISTORY: 79-year-old male with known CAD, history of PCI /stenting of proximal -mid LAD, OM 2 branch; hypertension, aortic aneurysm. Patient was admitted to [facility] with complaints of chest discomfort. His troponins were minimally elevated. Patient was apparently managed medically initially, however, he had mild recurrent chest discomfort last night and was therefore referred by Dr. Bhatia for cardiac catheterization to re-evaluate coronary anatomy and patency of previously placed stent. Review of patient's medical records indicate that he had cardiac catheterization/ intervention on 11/21/2018 at [facility]. At that time, apparently, he had unstable angina, and underwent PCI/bare metal stenting of OM2 branch using a 2.5 x 22 mm stent; IFR guided PCI/stenting of proximal-mid LAD using a 3.0 x 15 mm drug-eluting stent. It is uncertain why a bare metal stent was utilized for the OM branch. In any case, patient apparently has been doing well the last couple of years until recently when he presented to the hospital with chest discomfort. Patient's CT scan of the chest during this hospitalization showed Aortic root dilated at 5.0 cm. Mildly aneurysmal ascending aorta up to 4.[address] scan performed at [facility] from 10/19/2017 reported aortic root diameter 4.8 x 4.9 cm. Benefits, risks and alternatives of the procedure were discussed with the patient and informed consent was obtained prior to the procedure. PROCEDURES PERFORMED: 1. Selective left and right coronary angiogram 2. IFR of mid LAD 3. Selective right common femoral angiogram and deployment of Angio-Seal hemostatic device 4. Moderate sedation-CPT code 46828 MODERATE SEDATION: Midazolam 1 mg; fentanyl 25 mcg. Start time 1025 , Stop time 1109 ; Total [id number] time 44 minutes; Layton Hinson RN was trained observer for moderate sedation. ACCESS SITE: Right common femoral artery PROCEDURE NOTE: After obtaining informed consent, patient was brought to catheterization lab and prepped and draped in a usual sterile manner. After local anesthesia with lidocaine, right common femoral artery access was taken with micropuncture needle followed by insertion of a 6 Slovak sheath. Selective left and right coronary angiogram was performed using 5 Slovak JL5 and JR4 catheters respectively. Orthogonal views were taken. Next, a 5 Slovak pigtail catheter was advanced in the aortic root, however there was difficulty in advancing the pigtail catheter in the LV cavity and, therefore, left ventriculogram was not performed. Selective right common femoral angiogram was performed after PCI followed by successful deployment of Angio-Seal vascular closure device. Patient tolerated procedure well without any immediate procedure related complications. FINDINGS: LEFT MAIN CORONARY: the left main coronary artery is a large caliber vessel without significant focal stenosis. The vessel bifurcates into LAD left circumflex branches. LEFT ANTERIOR DESCENDING ARTERY: The LAD is a medium caliber vessel in the proximal segment mild diffuse disease; previously placed stent in the proximal-mid segment is patent, however, there is about 50% stenosis at the distal edge of the stent. The remainder of the mid LAD has mild diffuse disease, tapers distally and wraps LV apex. The major diagonal branch is a medium caliber vessel and is partially jailed at its ostium, which is located at the previously placed stent. The remainder of the proximal-mid segment of di
[2020-01-13] MEDS: NITROGLYCERIN/D5W 200 MCG/ML 50 MG/250 ML BTL 6 MG IV CONT (11:20)
--- NOTE | 2020-01-13 16:42 | PM.IMPN ---
Progress Note: A&P Assessment and Plan (1) Non-ST elevation [place] (NSTEMI): Code(s): I21.4 - Non-ST elevation (NSTEMI) myocardial infarction Status: Acute Assessment and Plan: Initially treated is non ST elevation but probably this unstable angina. No wall motion abnormalities on echo. Catheterization today 50% distal in stent stenosis of distal portion of LAD stent and minimal occlusion of circ stent. No further intervention Cardiology adjusting meds (2) Hypertension: Code(s): I10 - Essential (primary) hypertension Status: Acute Assessment and Plan: Continue beta-justin cardiology has started Coreg in place of metoprolol. Continue ARB Subjective Date/time seen: 01/13/20 16:42 Interval history: Date of visit 01/12. Admitted 01/10 with chest pain radiating to arms, sob. Elevated troponin. Pain free now. No sob. cath. Today. Had stent of LAD and circ approximately year ago Echo no wall motion abnormality with normal EF Exam Narrative: Exam Narrative: Blood pressure 144/62 pulse is 60 afebrile HEENT: PERRL, sclerae nonicteric, NECK: No JVD CHEST: Clear to auscultation. Normal effort. HEART: NL S1/S2, regular, no murmer ABDOMEN: BS+, soft, nontender, no mass, EXTREMITIES: No, edema, or clubbing. Pulses 2+ carotids, radials, DP. NEUROLOGIC: CN intact and no focal deficits. . PSYCH: Alert. Oriented to person, place, and time. Objective Data Vital Signs Vital Signs: Vital Signs - 24 hr 01/12/20 18:00 01/12/20 19:42 01/12/20 20:00 Temperature 36.7 C Pulse Rate 61 56 L 58 L Pulse Rate [Bilateral Pedal (Dorsalis Pedis)] Respiratory Rate 20 Blood Pressure 124/58 L Pulse Oximetry 97 01/12/20 21:47 01/12/20 23:42 01/12/20 23:47 Temperature 36.7 C Pulse Rate 65 55 L 56 L Pulse Rate [Bilateral Pedal (Dorsalis Pedis)] Respiratory Rate 20 Blood Pressure 137/49 L Pulse Oximetry 97 01/13/20 02:00 01/13/20 04:00 01/13/20 06:00 Temperature 36.2 C L Pulse Rate 46 L 58 L 52 L Pulse Rate [Bilateral Pedal (Dorsalis Pedis)] Respiratory Rate 20 Blood Pressure 164/47 H Pulse Oximetry 96 01/13/20 08:00 01/13/20 11:30 01/13/20 11:57 Temperature 36.1 C L Pulse Rate 53 L 60 61 Pulse Rate [Bilateral Pedal (Dorsalis Pedis)] Respiratory Rate 20 17 18 Blood Pressure 166/52 H 144/62 H 144/62 H Pulse Oximetry 98 97 98 01/13/20 12:00 01/13/20 12:15 01/13/20 12:30 Temperature 36.7 C Pulse Rate 63 63 58 L Pulse Rate [Bilateral Pedal (Dorsalis Pedis)] Respiratory Rate 15 16 18 Blood Pressure 140/61 120/71 117/57 L Pulse Oximetry 96 97 95 01/13/20 13:02 01/13/20 13:30 01/13/20 14:07 Temperature Pulse Rate 55 L 56 L 62 Pulse Rate [Bilateral Pedal (Dorsalis Pedis)] 55 L 56 L 62 Respiratory Rate 15 16 171 H Blood Pressure 145/56 H 120/65 128/64 Pulse Oximetry 96 96 96 01/13/20 15:00 01/13/20 16:00 Temperature 36.2 C L Pulse Rate 77 Pulse Rate [Bilateral Pedal (Dorsalis Pedis)] 62 Respiratory Rate 20 Blood Pressure 111/59 L Pulse Oximetry 98 Intake/Output Intake/Output: Intake & Output 01/10/20 01/11/20 01/12/20 01/13/20 23:59 23:59 23:59 23:59 Intake Total 622 1470 610 Balance 622 1470 610 Meds/Results Medications: Active Medications Generic Name Dose Route Start Last Admin Trade Name Freq PRN Reason Stop Dose Admin Aspirin 81 mg 01/12/20 09:00 01/13/20 08:10 Aspirin Ec PO 81 mg QAM [facility] Administration Atorvastatin Calcium 80 mg 01/11/20 11:32 01/13/20 08:10 Lipitor PO 80 mg DAILY [facility] Administration Carvedilol 6.25 mg 01/13/20 21:00 Coreg PO Q12HR [facility] Clopidogrel Bisulfate 75 mg 01/12/20 09:55 01/13/20 08:10 Plavix PO 75 mg QAM [facility] Administration Sodium Chloride 1,000 mls @ 125 mls/hr 01/13/20 11:37 Normal Saline Iv IV CONT 01/13/20 19:36 .Q8H ONE Isosorbide Mononitrate 30 mg 01/12/20 09:00 01/13/20 08:10 Imdur PO 30 mg
[2020-01-13] MEDS: SODIUM CHLORIDE 0.9% IV 1,000 ML 125 ML IV CONT (17:05)
[2020-01-13] MEDS: carvediloL 6.25 MG TABLET PO (20:20)
[2020-01-14] VITALS (12 sets, daily range): BP systolic 153–170; BP diastolic 47–70; PULSE 51–66; RESP 16–20; TEMP 36.6–36.8; O2SAT 97–98
--- NOTE | 2020-01-14 07:51 | PM.PNCARD ---
Progress Note: A&P Assessment and Plan (1) Ascending aortic aneurysm: Code(s): I71.2 - Thoracic aortic aneurysm, without rupture Status: Acute Assessment and Plan: Aortic root aneurysm 5.0 cm. (2) Hyperlipidemia: Code(s): E78.5 - Hyperlipidemia, unspecified Status: Acute (3) CAD (coronary artery disease): Code(s): I25.10 - Atherosclerotic heart disease of [place] coronary artery without angina pectoris Status: Acute (4) Hypertension: Code(s): I10 - Essential (primary) hypertension Status: Acute Assessment and Plan: Increase Losartan 100 mg daily. On Coreg 6.25 mg BID and not higher dose due to bradycardia. Start Hydralazine 25 mg TID. Continue to monitor. If BP controlled, may d/c home from cardiology standpoint. F/U with me in 2 weeks. (5) Non-ST elevation [place] (NSTEMI): Code(s): I21.4 - Non-ST elevation (NSTEMI) myocardial infarction Status: Acute Assessment and Plan: Small, mild without wall motion abnormalities on echo. Cardiac cath on 01/14/20 shows 50% stenosis at edge of LAD stent and mild plaque in-stent restenosis of OM2. On aspirin, Clopidogrel, Coreg, Losartan, Atorvastatin. Subjective Date/time seen: 01/14/20 07:51 Denies chest pain or sob. Right groin cath access site without pain or bruising. Exam Const: General: comfortable and no acute distress Neck: Neck: no JVD Carotids: no bruits Resp: Auscultation: clear to auscultation bilaterally, no crackles, no rales, no rhonchi and no wheezes Cardio: Rate: regular rate Rhythm: regular rhythm Heart sounds: no murmurs GI: Inspection: non-distended Neuro: Speech: normal speech Extrem: Right lower extremity: no edema Left lower extremity: no edema Other: Right groin without bruit or tenderness or hematoma. Objective Data Vital Signs Vital Signs: Vital Signs - 24 hr 01/13/20 08:00 01/13/20 11:30 01/13/20 11:57 Temperature 97 F L Pulse Rate 53 L 60 61 Pulse Rate [Bilateral Pedal (Dorsalis Pedis)] Respiratory Rate 20 17 18 Blood Pressure 166/52 H 144/62 H 144/62 H Pulse Oximetry 98 97 98 01/13/20 12:00 01/13/20 12:15 01/13/20 12:30 Temperature 98.0 F Pulse Rate 63 63 58 L Pulse Rate [Bilateral Pedal (Dorsalis Pedis)] Respiratory Rate 15 16 18 Blood Pressure 140/61 120/71 117/57 L Pulse Oximetry 96 97 95 01/13/20 13:02 01/13/20 13:30 01/13/20 14:07 Temperature Pulse Rate 55 L 56 L 62 Pulse Rate [Bilateral Pedal (Dorsalis Pedis)] 55 L 56 L 62 Respiratory Rate 15 16 171 H Blood Pressure 145/56 H 120/65 128/64 Pulse Oximetry 96 96 96 01/13/20 15:00 01/13/20 16:00 01/13/20 17:00 Temperature 97.1 F L 98.1 F Pulse Rate 63 63 67 Pulse Rate [Bilateral Pedal (Dorsalis Pedis)] 62 Respiratory Rate 20 8 L Blood Pressure 111/59 L 139/63 Pulse Oximetry 98 97 01/13/20 18:00 01/13/20 19:54 01/13/20 20:00 Temperature 98.0 F Pulse Rate 77 74 62 Pulse Rate [Bilateral Pedal (Dorsalis Pedis)] 62 Respiratory Rate 18 Blood Pressure 152/59 H Pulse Oximetry 93 01/13/20 20:20 01/13/20 22:00 01/13/20 23:47 Temperature 98.2 F Pulse Rate 61 60 72 Pulse Rate [Bilateral Pedal (Dorsalis Pedis)] Respiratory Rate 20 Blood Pressure 157/49 H Pulse Oximetry 95 01/14/20 00:00 01/14/20 00:45 01/14/20 02:00 Temperature Pulse Rate 60 60 55 L Pulse Rate [Bilateral Pedal (Dorsalis Pedis)] 60 Respiratory Rate Blood Pressure Pulse Oximetry 01/14/20 04:00 01/14/20 04:20 01/14/20 06:00 Temperature 98.2 F Pulse Rate 52 L 52 L 51 L Pulse Rate [Bilateral Pedal (Dorsalis Pedis)] Respiratory Rate 20 Blood Pressure 166/55 H Pulse Oximetry 97 Intake/Output Intake/Output: Intake & Output 01/11/20 01/12/20 01/13/20 01/14/20 23:59 23:59 23:59 23:59 Intake Total 622 1470 1100 700 Balance 622 1470 1100 700 Meds/Results Medications: Active Medications Generic Name Dose Route Start Last
[2020-01-14 08:52] LABS: Blood Urea Nitrogen 10 mg/dL (9-20); Calcium 8.8 mg/dL (8.4-10.2); Carbon Dioxide 24 mmol/L (22-30); Chloride 109 mmol/L (98-107); Estimated CRCL calculation 95 ml/min; Estimated Glomerular Filt Rate > 60; Glucose 92 mg/dL (75-110); Potassium 4.7 mmol/L (3.4-5.0); Sodium 138 mmol/L (137-145)
[2020-01-14 09:18] LABS: Hematocrit 32.6 % (42.0-52.0); Hemoglobin 12.1 g/dL (14.0-18.0); Mean Corpuscular HGB Conc 37.1 g/dl (32-36); Mean Corpuscular Hemoglobin 36.9 pg (26-34); Mean Corpuscular Volume 99.4 fl (80-100); Mean Platelet Volume 11.6 fl (7.4-10.4); Platelet Count Result 143 k/mm3 (150-375); Red Blood Count 3.28 M/mm3 (4.6-6.20); Red Cell Distribution Width 15.3 % (11.5-14.5); White Blood Count 4.3 K/mm3 (4.5-10.0)
[2020-01-14] MEDS: hydrALAZINE HCL 25 MG TABLET PO ×2 (09:24→13:08)
[2020-01-14] MEDS: CLOPIDOGREL BISULFATE 75 MG TABLET PO (09:24)
[2020-01-14] MEDS: LOSARTAN POTASSIUM 100 MG TABLET PO (09:24)
[2020-01-14] MEDS: carvediloL 6.25 MG TABLET PO (09:24)
[2020-01-14] MEDS: ISOSORBIDE MONONITRATE 30 MG TAB.ER.24H PO (09:24)
[2020-01-14] MEDS: ATORVASTATIN 40 MG TABLET 80 MG PO (09:24)
[2020-01-14] MEDS: ASPIRIN 81 MG ENTERIC TABLET PO (09:25)
--- NOTE | 2020-01-15 18:28 | PM.DS ---
DS: Diagnosis Admitting Diagnosis Admitting Diagnosis: Non-ST elevation (NSTEMI) myocardial infarction Discharge Diagnosis (1) Non-ST elevation [place] (NSTEMI): Code(s): I21.4 - Non-ST elevation (NSTEMI) myocardial infarction Status: Acute Assessment and Plan: Initially treated as non ST elevation but probably more unstable angina. No wall motion abnormalities on echo. Catheterization 50% distal end of LAD stent and minimal occlusion of circ stent. No further intervention Cardiology adjusted meds adding statins and nitrate with low-dose Coreg (2) Hypertension: Code(s): I10 - Essential (primary) hypertension Status: Acute Assessment and Plan: Continue beta-justin cardiology has started Coreg in place of metoprolol. Continue ARB and added nitrate and hydralazine (3) Ascending aortic aneurysm: Code(s): I71.2 - Thoracic aortic aneurysm, without rupture Status: Acute Assessment and Plan: Seen at catheterization an estimated 4.7 cm at echo. Blood pressure control in followed with serial exams with Cardiology DS: Summary Hospital Course Hospital Course: 71-year-old hypertensive white male with known coronary disease admitted with chest discomfort. Slight elevation in troponin with no EKG changes and no wall motion abnormality seen on echo. Was taken to the slab worker for repeat catheterization and found to have only EF 50% lesion at the end of the original LAD stent and small in stent stenosis of the circumflex stent. Will be treated medically. Medications adjusted to control his blood pressure. Discharge home to follow-up with Dr. Bhatia Time Spent with Patient Time attestation: Total time spent providing and/or coordinating discharge services: 35 minutes Exam Narrative: Exam Narrative: Condition on discharge Blood pressure 150/60 pulse is 66 saturating 97% on room air Lungs clear CV regular rate rhythm Abdomen is soft Extremities without edema good distal pulses Pain-free Discharge Plan Discharge Attending physician on discharge: Raymundo Henning Consulting providers: Jesus Fernandez ; Tylor Calvin ; Jacobo Bhatia ; Terry Nguyen ; Santi Houston ; Jonathan Salter Discharging Clinician: Raymundo Henning Patient Disposition: Home, Self-Care Activity: other - see discharge instructions Diet: low sodium and low cholesterol Discharge Instructions: post cath restrictions per cardiology Patient Instructions: Antibiotic Form, Coronary Artery Disease (DC), Hypertension (DC), Hyperlipidemia (DC), Heart Catheterization (DC) Stand Alone Forms: General Discharge Information Follow-up/Referrals: Jacobo Bhatia DO [Physician] - 2 Weeks Tylor Calvin MD [Physician] - 3 Weeks Discharge Medications: New carvedilol [Coreg] 6.25 mg Tablet 6.25 mg PO Q12HR Qty: 60 RF: 0 isosorbide mononitrate 30 mg Tablet Extended Release 24 Hr 30 mg PO QAM Qty: 30 RF: 0 hydralazine 25 mg Tablet 25 mg PO TID Qty: 100 RF: 0 losartan 100 mg Tablet 100 mg PO QAM Qty: 30 RF: 0 Continued atorvastatin 40 mg tablet 40 mg PO DAILY RF: 0 clopidogrel 75 mg tablet 75 mg PO DAILY RF: 0 aspirin 81 mg Tablet,Delayed Release (Dr/Ec) 81 mg PO DAILY RF: 0 Discontinued losartan 50 mg tablet 50 mg PO DAILY RF: 0 carvedilol 3.125 mg tablet 3.125 mg PO DAILY RF: 0 Date of admission: 01/11/20 05:39 Primary Care Provider: WoodRozina Admitting Provider: Catherine Mohan Discharge Date/Time: 01/14/20 13:32 Attending physician on admission: Raymundo Henning Condition: Serious
== END 2020-01-14 13:32 | disposition home or self-care (01) | DRG 287 ==
LOC: ANHED 01:20 → ANHICU 06:35 → ANHIMU 21:55 → ANHICU 01-15 14:33 → ANHIMU 01-15 14:33
PROVIDERS: Internal Medicine; Internal Medicine Cardiovascular Disease; Internal Medicine Critical Care Medicine; Internal Medicine Interventional Cardiology; Admitting Provider Internal Medicine; Emergency Provider General Practice; PCP Nurse Practitioner Family; Visit Provider Internal Medicine
PROC: 4A023N7 Measurement of Cardiac Sampling and Pressure, Left Heart, Percutaneous Approach (ICD-10-PCS; CPT 93452; principal; 2020-01-13 10:00)
PROC: 4A033BC Measurement of Arterial Pressure, Coronary, Percutaneous Approach (ICD-10-PCS; CPT 93571; 2020-01-13 10:00)
PROC: 4A023N7 Measurement of Cardiac Sampling and Pressure, Left Heart, Percutaneous Approach (ICD-10-PCS; 2020-01-13 10:00)
DX: I25.110 Atherosclerotic heart disease of native coronary artery with unstable angina pectoris (principal); T82.855A Stenosis of coronary artery stent, initial encounter; I25.2 Old myocardial infarction; Z95.5 Presence of coronary angioplasty implant and graft; Z87.891 Personal history of nicotine dependence; I10 Essential (primary) hypertension; E78.5 Hyperlipidemia, unspecified; M89.49 Other hypertrophic osteoarthropathy, multiple sites; I71.2 Thoracic aortic aneurysm, without rupture
CPT/HCPCS: 36415; 71275; 80048; 82274; 82607; 82746; 83540; 83550; 84484; 85025; 85027; 85046; 85610; 85730; 93005; 93306; 93458; 93571; 96365; 96366; 96368; 96375; 99291; A9270; C1760; C1769; C1887; C1894; C8929; G0269; J0360; J0583; J1644; J2250; J2270; J2405; J3010; J7030; J7040; Q9957; Q9967

== ENCOUNTER 2022-03-16 11:53 | Outpatient (CLI) | payer MEDICARE, SELFPAY ==
--- NOTE | ~2022-03-16 | XR_ITS ---
EXAMINATION: XR chest 2V DATE: 03/16/2022 12:35 INDICATION: Shortness of breath and chest pain. TECHNIQUE: Frontal and lateral views of the chest were obtained. COMPARISON: Chest CT 01/11/2020 FINDINGS: There is no pneumonia, pleural effusion, or pneumothorax. The heart size is normal. Again s een is ectasia of ascending aorta. There is mild chronic anterior wedging of midthoracic vertebral wanda dies. IMPRESSION: 1. Ectasia of ascending aorta again seen. Reviewed, dictated and finalized at location A.
== END 2022-03-16 11:54 ==
PROVIDERS: PCP Internal Medicine Cardiovascular Disease; Visit Provider Internal Medicine Cardiovascular Disease
DX: I48.91 Unspecified atrial fibrillation (principal); I25.10 Atherosclerotic heart disease of native coronary artery without angina pectoris; E78.5 Hyperlipidemia, unspecified; I10 Essential (primary) hypertension; F17.200 Nicotine dependence, unspecified, uncomplicated
CPT/HCPCS: 71046